=== PATIENT | male | born 1975 | race Caucasian/White ===

== ENCOUNTER → 2021-05-13 | Outpatient (CLI) | payer BC ==
[~2021-05-13] MED LIST: VICODIN ES 7501 TAB PO
== END | disposition home or self-care (01) ==
LOC: US 07:30
PROVIDERS: ATTEND Nurse Practitioner Family
DX: R19.7 Diarrhea, unspecified (principal); K76.0 Fatty (change of) liver, not elsewhere classified; R17 Unspecified jaundice

== ENCOUNTER → 2021-10-15 | Outpatient (CLI) | payer BC | END | disposition home or self-care (01) | LOC: RAD 15:51 | PROVIDERS: ATTEND Nurse Practitioner Family | DX: M79.672 Pain in left foot (principal); M79.89 Other specified soft tissue disorders ==

== ENCOUNTER 2021-11-14 09:36 | Emergency (ER) | payer BC ==
[~2021-11-14] VITALS: Ht 175.2 cm; Wt 90.7 kg
[2021-11-14 11:00] LABS: BASO % 0.4 % (0.0-1.0); EOS # 0.1 10*3/uL (0.0-0.4); EOS % 0.7 % (1.0-4.0); HEMATOCRIT 40.8 % (42.0-52.0); LYMPH # 1.3 10*3/uL (1.3-4.4); LYMPH % 19.2 % (27.0-41.0); MEAN CORPUSCULAR HGB 34.8 pg (27.0-31.0); MEAN CORPUSCULAR HGB CONC 34.1 g/dl (33.0-37.0); MEAN PLATELET VOLUME 10.8 fl (9.6-12.3); MONO # 0.5 10*3/uL (0.1-1.0); MONO % 6.7 % (3.0-9.0); NEUT # 4.9 10*3/uL (2.3-7.9); NEUT % 72.9 % (47.0-73.0); PLATELET COUNT AUTOMATED 115 10*3/uL (130-400); RED CELL DISTRI WIDTH 12.5 % (0-14.5); WHITE BLOOD COUNT 6.7 10*3/uL (4.8-10.8)
[2021-11-14 11:35] LABS: ALKALINE PHOSPHATASE 69 U/L (45-117); BUN 12 mg/dl (7-24); CHLORIDE 111 mmol/L (98-107); CREATININE 0.75 mg/dL (0.70-1.30); POTASSIUM 4.2 mmol/L (3.5-5.1); SGOT/AST 209 IU/L (3-35); SGPT/ALT 180 U/L (12-78); SODIUM 141 mmol/L (136-145); TOTAL PROTEIN 7.3 gm/dL (6.4-8.2)
[2021-11-14] MEDS ORDERED: PREDNISONE50 MG PO (13:56)
== END 2021-11-14 14:04 | disposition home or self-care (01) ==
LOC: ED 09:36
PROVIDERS: Internal Medicine
DX: M79.602 Pain in left arm (principal); R20.0 Anesthesia of skin; R20.2 Paresthesia of skin

== ENCOUNTER 2022-01-12 15:43 | Emergency (ER) | payer BC ==
[~2022-01-12] VITALS: Ht 175.2 cm; Wt 90.7 kg
[~2022-01-12 15:43] MED LIST changes: +PREDNISONE50 MG PO
[2022-01-12 19:02] LABS: BASO % 0.5 % (0.0-1.0); EOS # 0.1 10*3/uL (0.0-0.4); EOS % 1.8 % (1.0-4.0); HEMATOCRIT 36.2 % (42.0-52.0); LYMPH # 1.2 10*3/uL (1.3-4.4); MEAN CELL VOLUME 98.4 fl (80.0-94.0); MEAN CORPUSCULAR HGB 35.3 pg (27.0-31.0); MEAN CORPUSCULAR HGB CONC 35.9 g/dl (33.0-37.0); MEAN PLATELET VOLUME 11.2 fl (9.6-12.3); MONO # 0.4 10*3/uL (0.1-1.0); MONO % 7.2 % (3.0-9.0); NEUT # 4.3 10*3/uL (2.3-7.9); NEUT % 71.3 % (47.0-73.0); PLATELET COUNT AUTOMATED 81 10*3/uL (130-400); RED BLOOD COUNT 3.68 10*6/uL (4.50-5.90); RED CELL DISTRI WIDTH 11.9 % (0-14.5); WHITE BLOOD COUNT 6.1 10*3/uL (4.8-10.8)
[2022-01-12 19:19] LABS: ALKALINE PHOSPHATASE 104 U/L (45-117); BUN 4 mg/dl (7-24); CHLORIDE 100 mmol/L (98-107); CREATININE 0.66 mg/dL (0.70-1.30); POTASSIUM 3.3 mmol/L (3.5-5.1); SGOT/AST 277 IU/L (3-35); SGPT/ALT 223 U/L (12-78); SODIUM 137 mmol/L (136-145); TOTAL PROTEIN 7.4 gm/dL (6.4-8.2)
[2022-01-12] MEDS ORDERED: AMOX-CLAV 875-1 EACH PO (20:04)
[2022-01-12] MEDS ORDERED: FLONASE ALLERG9.9 ML NAS (20:04)
== END 2022-01-12 19:20 | disposition home or self-care (01) ==
LOC: ED 15:43
PROVIDERS: Physician Assistant
DX: J32.8 Other chronic sinusitis (principal)

== ENCOUNTER 2022-04-14 16:54 | Inpatient (IN) | payer BC ==
[~2022-04-14] VITALS: Ht 175.3 cm; Wt 77.0 kg
[~2022-04-14 16:54] MED LIST changes: +AMOX-CLAV 875-1 EACH PO; +FLONASE ALLERG9.9 ML NAS; +LOSARTAN POTAS100 M1 PO
[2022-04-14 17:45] VITALS: BP 170/98
[2022-04-14 18:42] LABS: INTERNATIONAL NORM RATIO 1.3 (2.0-3.5)
[2022-04-14 18:45] LABS: ALKALINE PHOSPHATASE 133 U/L (46-116); BUN 5 mg/dl (9-23); CHLORIDE 94 mmol/L (98-107); ETHYL ALCOHOL 248.5 mg/dl (<3); POTASSIUM 3.4 mmol/L (3.4-5.1); SGPT/ALT 197 U/L (10-49); TOTAL PROTEIN 6.8 gm/dL (6.0-8.0)
[2022-04-14 18:54] LABS: HEMATOCRIT 36.3 % (42.0-52.0); MEAN CELL VOLUME 97.3 fl (80.0-94.0); MEAN CORPUSCULAR HGB 35.1 pg (27.0-31.0); MEAN CORPUSCULAR HGB CONC 36.1 g/dl (33.0-37.0); MEAN PLATELET VOLUME 10.1 fl (9.6-12.3); PLATELET COUNT AUTOMATED 32 10*3/uL (130-400); RED BLOOD COUNT 3.73 10*6/uL (4.50-5.90); RED CELL DISTRI WIDTH 11.7 % (0-14.5); WHITE BLOOD COUNT 3.5 10*3/uL (4.8-10.8)
[2022-04-14 19:14] LABS: MANUAL DIFF REFLEX YES
[2022-04-14 19:20] LABS: BASOPHILS 2 % (0-1); TOTAL CELLS COUNTED 100 #CELLS
[2022-04-14 19:21] LABS: PLATELET SUFFICIENCY LOW (NORMAL)
[2022-04-14 22:10] VITALS: BP 154/93
[2022-04-14 23:54] LABS: BILIRUBIN Negative (Negative); BLOOD 3+ (Negative); CLARITY Clear (Clear); COLOR Dark Yellow (Yellow); GLUCOSE Negative (Negative); KETONE Negative (Negative); LEUKO ESTERASE Trace (Negative); NITRITE Negative (Negative); PH 7.5 (4.5-8.0); SPECIFIC GRAVITY <= 1.005 (1.001-1.030)
[2022-04-15 00:01] LABS: URINE AMPHETAMINES Negative (1000ng/ml); URINE BARBITURATES Negative (200ng/ml); URINE BENZODIAZEPINES Negative (200ng/ml); URINE CANNABINOIDS (THC) Negative (50ng/ml); URINE COCAINE Negative (300ng/ml); URINE METHADONE Negative (300ng/ml); URINE OPIATES Negative (300ng/ml); URINE PHENCYCLIDINE Negative (25ng/ml)
[2022-04-15 00:05] LABS: RBC 41-50 rbc/hpf (0-2)
[2022-04-15 05:28] LABS: ALKALINE PHOSPHATASE 113 U/L (46-116); CHLORIDE 100 mmol/L (98-107); CHOLESTEROL 201 mg/dL (<200); LDL CHOLESTEROL 128 mg/dL (9-159); POTASSIUM 3.2 mmol/L (3.4-5.1); SGPT/ALT 163 U/L (10-49); THYROID STIM HORMONE (HS) 3.677 uIU/ml (0.550-4.780); TOTAL PROTEIN 6.1 gm/dL (6.0-8.0); TRIGLYCERIDES 209 mg/dl (<150)
[2022-04-15 05:29] LABS: BUN < 5 mg/dl (9-23)
[2022-04-15 06:23] LABS: ACT PARTIAL THROMBO TIME 27.8 SECONDS (20.0-32.1); INTERNATIONAL NORM RATIO 1.2 (2.0-3.5)
[2022-04-15 06:33] LABS: HEMATOCRIT 35.3 % (42.0-52.0); MEAN CORPUSCULAR HGB 34.5 pg (27.0-31.0); MEAN CORPUSCULAR HGB CONC 34.3 g/dl (33.0-37.0); MEAN PLATELET VOLUME 11.3 fl (9.6-12.3); PLATELET COUNT AUTOMATED 32 10*3/uL (130-400); RED BLOOD COUNT 3.51 10*6/uL (4.50-5.90); RED CELL DISTRI WIDTH 12.1 % (0-14.5); WHITE BLOOD COUNT 3.3 10*3/uL (4.8-10.8)
[2022-04-15 06:43] LABS: MANUAL DIFF REFLEX YES; MEAN CELL VOLUME 100.6 fl (80.0-94.0)
[2022-04-15 07:07] LABS: VITAMIN D, 25-HYDROXY 13.5 ng/mL (30-100)
[2022-04-15 07:28] LABS: BASOPHILS 2 % (0-1); PLATELET SUFFICIENCY LOW (NORMAL); POLYCHROMASIA SLIGHT; TOTAL CELLS COUNTED 100 #CELLS
[2022-04-15 08:00] VITALS: BP 124/66
[2022-04-15 12:00] VITALS: BP 134/68
[2022-04-15 16:00] VITALS: BP 126/72
[2022-04-15 20:00] VITALS: BP 139/88
[2022-04-16] VITALS (7 sets, daily range): BP systolic 110–147; BP diastolic 69–94
[2022-04-16 06:08] LABS: HBSAG Negative (Negative); HEP B CORE AB, IGM Negative (Negative); HEPATITIS C ANTIBODY <0.1 (0.0-0.9)
[2022-04-16 07:10] LABS: MEAN CELL VOLUME 101.2 fl (80.0-94.0); MEAN CORPUSCULAR HGB 35.3 pg (27.0-31.0); MEAN CORPUSCULAR HGB CONC 34.8 g/dl (33.0-37.0); MEAN PLATELET VOLUME 12.1 fl (9.6-12.3); RED BLOOD COUNT 3.26 10*6/uL (4.50-5.90); RED CELL DISTRI WIDTH 12.4 % (0-14.5); WHITE BLOOD COUNT 4.6 10*3/uL (4.8-10.8)
[2022-04-16 07:15] LABS: MANUAL DIFF REFLEX YES
[2022-04-16 07:19] LABS: PLATELET COUNT AUTOMATED 28 10*3/uL (130-400)
[2022-04-16 07:22] LABS: POTASSIUM 3.4 mmol/L (3.4-5.1); TOTAL PROTEIN 5.8 gm/dL (6.0-8.0)
[2022-04-16 07:31] LABS: BASOPHILS 1 % (0-1); TOTAL CELLS COUNTED 100 #CELLS
[2022-04-16 07:32] LABS: OVALOCYTES FEW; PLATELET SUFFICIENCY LOW (NORMAL); POLYCHROMASIA SLIGHT
[2022-04-16 10:59] LABS: BILIRUBIN 2+ (Negative); BLOOD 3+ (Negative); CLARITY Cloudy (Clear); COLOR Dark Yellow (Yellow); GLUCOSE Negative (Negative); KETONE Trace (Negative); LEUKO ESTERASE Trace (Negative); NITRITE Negative (Negative); UROBILINOGEN >= 8.0 E.U./dl (0.0-1.0)
[2022-04-16 11:15] LABS: BACTERIA 2+; RBC TNTC rbc/hpf (0-2)
[2022-04-16 11:16] LABS: URINE CREATININE RANDOM 105.81 mg/dL
[2022-04-16 11:19] LABS: URINE CHLORIDE, RANDOM < 20 mmol/L
[2022-04-17] VITALS (12 sets, daily range): BP systolic 108–136; BP diastolic 62–88
[2022-04-17 05:41] LABS: POTASSIUM 4.1 mmol/L (3.4-5.1); TOTAL PROTEIN 5.9 gm/dL (6.0-8.0)
[2022-04-17 06:32] LABS: HEMATOCRIT 37.9 % (42.0-52.0); MEAN CELL VOLUME 104.1 fl (80.0-94.0); MEAN CORPUSCULAR HGB 34.6 pg (27.0-31.0); MEAN CORPUSCULAR HGB CONC 33.2 g/dl (33.0-37.0); MEAN PLATELET VOLUME 12.8 fl (9.6-12.3); PLATELET COUNT AUTOMATED 33 10*3/uL (130-400); RED BLOOD COUNT 3.64 10*6/uL (4.50-5.90); RED CELL DISTRI WIDTH 12.5 % (0-14.5); WHITE BLOOD COUNT 5.7 10*3/uL (4.8-10.8)
[2022-04-17 06:34] LABS: MANUAL DIFF REFLEX YES
[2022-04-17 07:29] LABS: BASOPHILS 1 % (0-1); PLATELET SUFFICIENCY LOW (NORMAL); POLYCHROMASIA SLIGHT; TOTAL CELLS COUNTED 100 #CELLS
[2022-04-18] VITALS: BP 127/81
[2022-04-18 04:00] VITALS: BP 136/87
[2022-04-18 05:37] LABS: ALKALINE PHOSPHATASE 116 U/L (46-116); BUN 23 mg/dl (9-23); CHLORIDE 103 mmol/L (98-107); POTASSIUM 4.3 mmol/L (3.4-5.1); SGPT/ALT 96 U/L (10-49); TOTAL PROTEIN 5.7 gm/dL (6.0-8.0)
[2022-04-18 06:23] LABS: HEMATOCRIT 35.5 % (42.0-52.0); MEAN CELL VOLUME 103.2 fl (80.0-94.0); MEAN CORPUSCULAR HGB 34.6 pg (27.0-31.0); MEAN CORPUSCULAR HGB CONC 33.5 g/dl (33.0-37.0); MEAN PLATELET VOLUME 12.3 fl (9.6-12.3); RED BLOOD COUNT 3.44 10*6/uL (4.50-5.90); RED CELL DISTRI WIDTH 12.8 % (0-14.5); WHITE BLOOD COUNT 5.7 10*3/uL (4.8-10.8)
[2022-04-18 06:35] LABS: MANUAL DIFF REFLEX YES
[2022-04-18 07:03] LABS: BASOPHILS 1 % (0-1); PLATELET SUFFICIENCY LOW (NORMAL); TOTAL CELLS COUNTED 100 #CELLS
[2022-04-18 07:04] LABS: PLATELET COUNT AUTOMATED 47 10*3/uL (130-400)
[2022-04-18 08:00] VITALS: BP 154/97
[2022-04-18 12:00] VITALS: BP 134/88
[2022-04-18] MEDS ORDERED: ATARAX,VISTARIL50 MG PO (14:37)
== END 2022-04-18 15:00 | disposition home or self-care (01) | DRG 896 ==
LOC: ED 16:54 → ICCU 20:49 → EDHOLD 20:49 → 4E 20:49 → ICCU 04-16 04:44
PROVIDERS: Internal Medicine; Physician Assistant; Student in an Organized Health Care Education/Training Program; ADMIT Emergency Medicine; ATTEND Emergency Medicine
DX: F10.139 Alcohol abuse with withdrawal, unspecified (principal); E43 Unspecified severe protein-calorie malnutrition; N17.0 Acute kidney failure with tubular necrosis; E87.1 Hypo-osmolality and hyponatremia; R65.10 Systemic inflammatory response syndrome (SIRS) of non-infectious origin without acute organ dysfunction; D61.818 Other pancytopenia; Z20.822 Contact with and (suspected) exposure to COVID-19; I10 Essential (primary) hypertension; R74.01 Elevation of levels of liver transaminase levels; E83.51 Hypocalcemia; Y90.8 Blood alcohol level of 240 mg/100 ml or more; E83.42 Hypomagnesemia; F41.9 Anxiety disorder, unspecified; D53.9 Nutritional anemia, unspecified; E87.8 Other disorders of electrolyte and fluid balance, not elsewhere classified; R73.9 Hyperglycemia, unspecified; D72.819 Decreased white blood cell count, unspecified; E80.6 Other disorders of bilirubin metabolism; R25.1 Tremor, unspecified; G44.89 Other headache syndrome; E83.39 Other disorders of phosphorus metabolism; K76.0 Fatty (change of) liver, not elsewhere classified; R16.2 Hepatomegaly with splenomegaly, not elsewhere classified; Z82.49 Family history of ischemic heart disease and other diseases of the circulatory system; Z83.3 Family history of diabetes mellitus; Z68.25 Body mass index [BMI] 25.0-25.9, adult

== ENCOUNTER → 2022-08-25 | Outpatient (CLI) | payer BC ==
[~2022-08-25] MED LIST changes: +AMLODIPINE BESYL5 MG PO; +ATARAX,VISTARIL50 MG PO; +MAGNESIUM OXID400 MG PO; +NATURE'S BLEND F1 MG PO; +Oscal,Oyster S500 MG PO; +PRILOSEC20 M1 PO; +VITAMIN B-1100 M1 PO; +VITAMIN D350 MC2 PO
[2022-08-25 08:24] LABS: BASO % 0.2 % (0.0-1.0); EOS # 0.1 10*3/uL (0.0-0.4); EOS % 2.6 % (1.0-4.0); HEMATOCRIT 31.9 % (42.0-52.0); LYMPH # 1.1 10*3/uL (1.3-4.4); MEAN CELL VOLUME 102.9 fl (80.0-94.0); MEAN CORPUSCULAR HGB 34.8 pg (27.0-31.0); MEAN CORPUSCULAR HGB CONC 33.9 g/dl (33.0-37.0); MEAN PLATELET VOLUME 9.8 fl (9.6-12.3); MONO # 0.4 10*3/uL (0.1-1.0); MONO % 9.6 % (3.0-9.0); NEUT # 2.6 10*3/uL (2.3-7.9); NEUT % 61.4 % (47.0-73.0); PLATELET COUNT AUTOMATED 131 10*3/uL (130-400); RED CELL DISTRI WIDTH 14.2 % (0-14.5); WHITE BLOOD COUNT 4.2 10*3/uL (4.8-10.8)
[2022-08-25 08:58] LABS: ALKALINE PHOSPHATASE 74 U/L (46-116); BUN 13 mg/dl (9-23); CHLORIDE 110 mmol/L (98-107); CHOLESTEROL 121 mg/dL (<200); LDL CHOLESTEROL 69 mg/dL (9-159); POTASSIUM 4.1 mmol/L (3.4-5.1); SGPT/ALT 19 U/L (10-49); TOTAL PROTEIN 6.5 gm/dL (6.0-8.0); TRIGLYCERIDES 68 mg/dl (<150)
== END | disposition home or self-care (01) ==
LOC: LAB 07:48
PROVIDERS: ATTEND Nurse Practitioner Family
DX: I10 Essential (primary) hypertension (principal)

== ENCOUNTER 2023-09-02 18:20 | Inpatient (IN) | payer SELFPAY ==
[~2023-09-02] VITALS: Ht 175.2 cm; Wt 86.2 kg
[2023-09-02 18:29] VITALS: BP 140/82
[2023-09-02] MEDS ORDERED: Thiamine 200 MG/2 ML VIAL IV ONE (18:30)
[2023-09-02] MEDS ORDERED: SODIUM CHLORIDE 0.9% 1,000 ML IV ONE (18:30)
[2023-09-02 18:46] LABS: BASO % 0.5 % (0.0-1.0); EOS % 0.5 % (1.0-4.0); HEMATOCRIT 35.6 % (42.0-52.0); LYMPH # 0.5 10*3/uL (1.3-4.4); LYMPH % 11.8 % (27.0-41.0); MEAN CELL VOLUME 98.3 fl (80.0-94.0); MEAN CORPUSCULAR HGB CONC 34.6 g/dl (33.0-37.0); MEAN PLATELET VOLUME 10.9 fl (9.6-12.3); MONO # 0.4 10*3/uL (0.1-1.0); MONO % 8.5 % (3.0-9.0); NEUT # 3.4 10*3/uL (2.3-7.9); NEUT % 78.5 % (47.0-73.0); PLATELET COUNT AUTOMATED 51 10*3/uL (130-400); RED BLOOD COUNT 3.62 10*6/uL (4.50-5.90); RED CELL DISTRI WIDTH 12.6 % (0-14.5); WHITE BLOOD COUNT 4.3 10*3/uL (4.8-10.8)
[2023-09-02 19:03] LABS: ALKALINE PHOSPHATASE 94 U/L (46-116); BUN 9 mg/dl (9-23); CHLORIDE 102 mmol/L (98-107); LIPASE 89 U/L (12-53); POTASSIUM 3.2 mmol/L (3.4-5.1); SGPT/ALT 114 U/L (5-49); TOTAL PROTEIN 6.1 gm/dL (6.0-8.0)
[2023-09-02 19:05] LABS: ACT PARTIAL THROMBO TIME 25.7 SECONDS (20.0-32.1)
[2023-09-02 19:15] LABS: ETHYL ALCOHOL < 3.0 mg/dl (<3)
[2023-09-02 19:30] VITALS: BP 138/71
[2023-09-02] MEDS ORDERED: LORazepam 2 MG/ML VIAL IV ONE ×2 (19:30→21:35)
[2023-09-02] MEDS ORDERED: MAGNESIUM SULFATE 100 ML IV ONE (19:30)
[2023-09-02 21:17] VITALS: BP 150/95
[2023-09-02 21:25] VITALS: BP 110/67
[2023-09-02 22:27] VITALS: BP 124/67
[2023-09-02 22:57] VITALS: BP 128/62
[2023-09-02] MEDS ORDERED: CALCIUM GLUC IN NACL, ISO-OSM 100 ML IV ONE (23:55)
[2023-09-03 00:18] VITALS: BP 112/70
[2023-09-03] MEDS ORDERED: CALCIUM GLUCONATE 1 GM/10 ML VIAL ONE (00:40)
[2023-09-03] MEDS ORDERED: SODIUM CHLORIDE 0.9% 100 ML IV ONE (00:43)
[2023-09-03 01:08] LABS: BILIRUBIN Negative (Negative); BLOOD 2+ (Negative); CLARITY Clear (Clear); COLOR Dark Yellow (Yellow); GLUCOSE Negative (Negative); KETONE Trace (Negative); LEUKO ESTERASE Negative (Negative); NITRITE Negative (Negative)
[2023-09-03 01:13] LABS: URINE AMPHETAMINES Negative (1000ng/ml); URINE BARBITURATES Negative (200ng/ml); URINE BENZODIAZEPINES Negative (200ng/ml); URINE CANNABINOIDS (THC) Negative (50ng/ml); URINE COCAINE Negative (300ng/ml); URINE METHADONE Negative (300ng/ml); URINE OPIATES Negative (300ng/ml); URINE PHENCYCLIDINE Negative (25ng/ml)
[2023-09-03 01:16] LABS: BACTERIA TRACE
[2023-09-03 01:24] VITALS: BP 132/70
[2023-09-03] MEDS ORDERED: LORazepam 2 MG/ML VIAL IV ONE (01:25)
[2023-09-03] MEDS ORDERED: POTASSIUM CHLORIDE 20 MEQ TAB PO ONE (02:00)
[2023-09-03 02:46] VITALS: BP 132/84
[2023-09-03] MEDS ORDERED: METHOCARBAMOL 750 MG TAB PO PRN (03:10)
[2023-09-03] MEDS ORDERED: ACETAMINOPHEN 325 MG TAB PO PRN (03:10)
[2023-09-03] MEDS ORDERED: hydrOXYzine 50 MG CAP PO PRN (03:10)
[2023-09-03] MEDS ORDERED: MULTIVITAMIN CONCENTRATE (IV) 10 ML,Thiamine 100 MG,FOLIC ACID 1 MG in SODIUM CHLORIDE ... IV ONE (03:10)
[2023-09-03] MEDS ORDERED: Ondansetron Hydrochloride 4 MG/2 ML VIAL IV PRN (03:10)
[2023-09-03] MEDS ORDERED: Dicyclomine Hydrochloride 20 MG TAB PO PRN (03:10)
[2023-09-03] MEDS ORDERED: DIAZEPAM 10 MG/2 ML SYR IV PRN (03:15)
[2023-09-03] MEDS ORDERED: SODIUM CHLORIDE 0.9% 1,000 ML IV ONE (03:45)
[2023-09-03] MEDS ORDERED: LORazepam 1 MG TAB PO SCH (04:00)
[2023-09-03 04:40] VITALS: BP 144/82
[2023-09-03 06:15] LABS: HEMATOCRIT 31.9 % (42.0-52.0); MEAN CELL VOLUME 98.5 fl (80.0-94.0); MEAN CORPUSCULAR HGB CONC 34.5 g/dl (33.0-37.0); MEAN PLATELET VOLUME 11.1 fl (9.6-12.3); PLATELET COUNT AUTOMATED 43 10*3/uL (130-400); RED BLOOD COUNT 3.24 10*6/uL (4.50-5.90); RED CELL DISTRI WIDTH 12.7 % (0-14.5); WHITE BLOOD COUNT 4.3 10*3/uL (4.8-10.8)
[2023-09-03 06:20] VITALS: BP 141/86
[2023-09-03 06:37] LABS: POTASSIUM 3.4 mmol/L (3.4-5.1); TOTAL PROTEIN 5.4 gm/dL (6.0-8.0)
[2023-09-03 07:07] LABS: MANUAL DIFF REFLEX YES
[2023-09-03 07:12] LABS: BASOPHILS 2 % (0-1); PLATELET SUFFICIENCY LOW (NORMAL); TOTAL CELLS COUNTED 100 #CELLS
[2023-09-03] MEDS ORDERED: MAGNESIUM SULFATE 50 ML IV ONE (07:15)
[2023-09-03] MEDS ORDERED: Thiamine 200 MG/2 ML VIAL IV ONE (07:19)
[2023-09-03] MEDS ORDERED: MULTIVITAMIN CONCENTRATE (IV) 10 ML VIAL IV ONE (07:19)
[2023-09-03] MEDS ORDERED: FOLIC ACID 50 MG/10 ML VIAL IV ONE (07:19)
[2023-09-03] MEDS ORDERED: SODIUM CHLORIDE 0.9% 1,000 ML BAG IV ONE (07:19)
[2023-09-03] MEDS ORDERED: Potassium Phosphate, Monobas 500 MG TAB PO SCH (08:00)
[2023-09-03] MEDS ORDERED: Thiamine 100 MG TAB PO SCH (10:00)
[2023-09-03] MEDS ORDERED: FOLIC ACID 1 MG TAB PO SCH (10:00)
[2023-09-03] MEDS ORDERED: MULTIVITAMIN 1 TAB TAB PO SCH (10:00)
[2023-09-03] MEDS ORDERED: amLODIPine besylate 5 MG TAB PO SCH (10:00)
[2023-09-03] MEDS ORDERED: Pantoprazole Sodium 40 MG VIAL IV SCH (10:00)
[2023-09-03 12:25] LABS: POTASSIUM 3.5 mmol/L (3.4-5.1)
[2023-09-03] MEDS ORDERED: ERGOCALCIFEROL 50,000 IU CAP (1.25 MG) PO SCH (14:00)
[2023-09-03] MEDS ORDERED: Lactated Ringer's Solution 1,000 ML IV SCH (14:25)
[2023-09-03 19:15] VITALS: BP 133/75
[2023-09-03] MEDS ORDERED: Loperamide Hydrochloride 2 MG CAP PO ONE (23:30)
[2023-09-04 00:15] VITALS: BP 159/89
[2023-09-04 04:30] LABS: HEMATOCRIT 32.7 % (42.0-52.0); MANUAL DIFF REFLEX YES; MEAN CELL VOLUME 99.7 fl (80.0-94.0); MEAN CORPUSCULAR HGB 34.5 pg (27.0-31.0); MEAN CORPUSCULAR HGB CONC 34.6 g/dl (33.0-37.0); MEAN PLATELET VOLUME 11.5 fl (9.6-12.3); PLATELET COUNT AUTOMATED 43 10*3/uL (130-400); RED BLOOD COUNT 3.28 10*6/uL (4.50-5.90); RED CELL DISTRI WIDTH 12.6 % (0-14.5); WHITE BLOOD COUNT 4.4 10*3/uL (4.8-10.8)
[2023-09-04 04:49] LABS: POTASSIUM 3.7 mmol/L (3.4-5.1)
[2023-09-04 04:57] LABS: BASOPHILS 1 % (0-1); PLATELET SUFFICIENCY LOW (NORMAL); ROULEAUX SLIGHT; TOTAL CELLS COUNTED 100 #CELLS
[2023-09-04 04:58] LABS: OVALOCYTES FEW
[2023-09-04] MEDS ORDERED: LORazepam 1 MG TAB PO SCH (06:00)
[2023-09-04 06:08] VITALS: BP 159/89
[2023-09-04] MEDS ORDERED: MAGNESIUM SULFATE 50 ML IV ONE (06:50)
[2023-09-04] MEDS ORDERED: Cholecalciferol 2,000 UNIT TABLET (50 MCG) PO SCH (10:00)
[2023-09-05] MEDS ORDERED: LORazepam 1 MG TAB PO PRN
== END 2023-09-04 07:55 | disposition left against medical advice (07) | DRG 894 ==
LOC: ED 18:20 → EDHOLD 09-03 02:01 → ICCU 09-03 07:36 → EDHOLD 09-03 07:36 → ICCU 09-03 07:36 → 4E 09-03 23:33 → EDHOLD 09-03 23:33
PROVIDERS: Internal Medicine; Student in an Organized Health Care Education/Training Program; ADMIT Internal Medicine; ATTEND Internal Medicine
DX: F10.929 Alcohol use, unspecified with intoxication, unspecified (principal); N17.0 Acute kidney failure with tubular necrosis; E44.0 Moderate protein-calorie malnutrition; D61.818 Other pancytopenia; E87.20 Acidosis, unspecified; R65.10 Systemic inflammatory response syndrome (SIRS) of non-infectious origin without acute organ dysfunction; F10.931 Alcohol use, unspecified with withdrawal delirium; N18.32 Chronic kidney disease, stage 3b; E87.6 Hypokalemia; E83.42 Hypomagnesemia; Y90.1 Blood alcohol level of 20-39 mg/100 ml; Z53.29 Procedure and treatment not carried out because of patient's decision for other reasons; R73.9 Hyperglycemia, unspecified; D53.9 Nutritional anemia, unspecified; D72.810 Lymphocytopenia; F17.290 Nicotine dependence, other tobacco product, uncomplicated; K76.0 Fatty (change of) liver, not elsewhere classified; E83.51 Hypocalcemia; Z71.6 Tobacco abuse counseling; Z82.49 Family history of ischemic heart disease and other diseases of the circulatory system; Z83.3 Family history of diabetes mellitus; Z78.9 Other specified health status; Z68.28 Body mass index [BMI] 28.0-28.9, adult

== ENCOUNTER 2023-09-08 08:58 | Emergency (ER) | payer SELFPAY ==
[~2023-09-08] VITALS: Ht 175.2 cm; Wt 86.2 kg
[2023-09-08] MEDS ORDERED: CITALOPRAM20 MG PO (09:05)
[2023-09-08 10:44] LABS: BASO % 0.9 % (0.0-1.0); EOS % 1.3 % (1.0-4.0); HEMATOCRIT 33.1 % (42.0-52.0); LYMPH # 0.7 10*3/uL (1.3-4.4); LYMPH % 29.4 % (27.0-41.0); MEAN CELL VOLUME 102.2 fl (80.0-94.0); MEAN CORPUSCULAR HGB 34.9 pg (27.0-31.0); MEAN CORPUSCULAR HGB CONC 34.1 g/dl (33.0-37.0); MEAN PLATELET VOLUME 10.5 fl (9.6-12.3); MONO # 0.4 10*3/uL (0.1-1.0); MONO % 16.5 % (3.0-9.0); NEUT # 1.2 10*3/uL (2.3-7.9); NEUT % 51.5 % (47.0-73.0); PLATELET COUNT AUTOMATED 80 10*3/uL (130-400); RED BLOOD COUNT 3.24 10*6/uL (4.50-5.90); RED CELL DISTRI WIDTH 13.3 % (0-14.5); WHITE BLOOD COUNT 2.3 10*3/uL (4.8-10.8)
[2023-09-08 11:06] LABS: ALKALINE PHOSPHATASE 95 U/L (46-116); BUN 7 mg/dl (9-23); CHLORIDE 109 mmol/L (98-107); POTASSIUM 3.4 mmol/L (3.4-5.1); SGPT/ALT 117 U/L (5-49); TOTAL PROTEIN 6.5 gm/dL (6.0-8.0)
[2023-09-08] MEDS ORDERED: DIAZEPAM 5 MG TAB PO ONE (11:30)
[2023-09-08 11:51] LABS: URINE AMPHETAMINES Negative (1000ng/ml); URINE BARBITURATES Negative (200ng/ml); URINE BENZODIAZEPINES Negative (200ng/ml); URINE CANNABINOIDS (THC) Negative (50ng/ml); URINE COCAINE Negative (300ng/ml); URINE METHADONE Negative (300ng/ml); URINE OPIATES Negative (300ng/ml); URINE PHENCYCLIDINE Negative (25ng/ml)
== END 2023-09-08 11:45 | disposition home or self-care (01) ==
LOC: ED 08:58
PROVIDERS: Emergency Medicine
DX: F10.139 Alcohol abuse with withdrawal, unspecified (principal); I10 Essential (primary) hypertension; Y90.3 Blood alcohol level of 60-79 mg/100 ml

== ENCOUNTER 2024-09-10 23:07 | Emergency (ER) | payer SELFPAY ==
[~2024-09-10] VITALS: Ht 177.8 cm; Wt 88.5 kg
[~2024-09-10 23:07] MED LIST changes: +CITALOPRAM20 MG PO
[2024-09-11 00:06] LABS: MEAN CELL VOLUME 108.3 fl (80.0-94.0); MEAN CORPUSCULAR HGB 35.3 pg (27.0-31.0); MEAN PLATELET VOLUME 10.8 fl (9.6-12.3); NUCLEATED RED BLOOD CELL 0.0 % (0.0-0.0); NUCLEATED RED BLOOD CELL 0.0 10*3/uL (0.0-0.0); PLATELET COUNT AUTOMATED 103 10*3/uL (130-400); RED CELL DISTRI WIDTH 13.5 % (0-14.5)
[2024-09-11 00:07] LABS: MANUAL DIFF REFLEX YES
[2024-09-11 00:25] LABS: BUN 12 mg/dl (9-23); SGPT/ALT 24 U/L (5-49)
[2024-09-11 01:00] LABS: BASOPHILS 1 % (0-1); PLATELET SUFFICIENCY LOW (NORMAL)
== END 2024-09-11 03:35 | disposition short-term general hospital (02) ==
LOC: ED 23:07
PROVIDERS: Internal Medicine
DX: K70.30 Alcoholic cirrhosis of liver without ascites (principal); R18.8 Other ascites; D53.9 Nutritional anemia, unspecified; E43 Unspecified severe protein-calorie malnutrition; R74.01 Elevation of levels of liver transaminase levels; Z79.899 Other long term (current) drug therapy; Z87.891 Personal history of nicotine dependence